=== PATIENT | female | born 1955 | race Caucasian/White ===

== ENCOUNTER 2023-04-29 13:14 | Outpatient (RCR) | payer OTHER, SELFPAY | END 2023-04-29 23:59 | disposition home or self-care (01) | LOC: RPT 13:14 | PROVIDERS: ATTENDING PHYSICIAN Obstetrics & Gynecology; FAMILY PHYSICIAN Internal Medicine | DX: R10.2 Pelvic and perineal pain (principal); M62.89 Other specified disorders of muscle; Z73.6 Limitation of activities due to disability; G89.29 Other chronic pain | CPT/HCPCS: 97162; 97535 ==

== ENCOUNTER 2023-05-20 09:58 | Outpatient (RCR) | payer OTHER, SELFPAY | END 2023-05-20 23:59 | disposition home or self-care (01) | LOC: RPT 09:58 | PROVIDERS: ATTENDING PHYSICIAN Obstetrics & Gynecology; FAMILY PHYSICIAN Internal Medicine | DX: R10.2 Pelvic and perineal pain (principal); M62.89 Other specified disorders of muscle; Z73.6 Limitation of activities due to disability; G89.29 Other chronic pain | CPT/HCPCS: 97110; 97140 ==

== ENCOUNTER → 2023-06-17 07:23 | Outpatient (REF) | payer OTHER, SELFPAY | LOC: RAD 07:23 | PROVIDERS: ATTENDING PHYSICIAN Physician Assistant Medical; FAMILY PHYSICIAN Internal Medicine | DX: R11.0 Nausea (principal) | CPT/HCPCS: 76700; 78226; A9537 ==

== ENCOUNTER 2023-06-25 12:45 | Outpatient (RCR) | payer OTHER, SELFPAY | END 2023-06-25 23:59 | disposition home or self-care (01) | LOC: RPT 12:45 | PROVIDERS: ATTENDING PHYSICIAN Obstetrics & Gynecology; FAMILY PHYSICIAN Internal Medicine | DX: R10.2 Pelvic and perineal pain (principal); M62.89 Other specified disorders of muscle; Z73.6 Limitation of activities due to disability | CPT/HCPCS: 97110; 97140; 97535 ==

== ENCOUNTER 2023-07-23 12:40 | Outpatient (RCR) | payer OTHER, SELFPAY | END 2023-07-23 23:59 | disposition home or self-care (01) | LOC: RPT 12:40 | PROVIDERS: ATTENDING PHYSICIAN Obstetrics & Gynecology; FAMILY PHYSICIAN Internal Medicine | DX: R10.2 Pelvic and perineal pain (principal); M62.89 Other specified disorders of muscle; Z73.6 Limitation of activities due to disability | CPT/HCPCS: 97110; 97140 ==

== ENCOUNTER 2023-08-13 09:46 | Outpatient (RCR) | payer OTHER, SELFPAY | END 2023-08-13 23:59 | disposition home or self-care (01) | LOC: RPT 09:46 | PROVIDERS: ATTENDING PHYSICIAN Obstetrics & Gynecology; FAMILY PHYSICIAN Internal Medicine | DX: R10.2 Pelvic and perineal pain (principal); M62.89 Other specified disorders of muscle | CPT/HCPCS: 97110; 97140 ==

== ENCOUNTER 2023-08-21 06:14 | Day surgery (SDC) | payer OTHER, SELFPAY ==
[2023-08-13 09:40] VITALS: BMI 27.0
[2023-08-13 10:29] LABS: Hematocrit 36.8 % (37.0-47.0); Hemoglobin 12.2 g/dL (12.0-16.0); Mean Corp Hgb Conc. 33.2 g/dL (33.0-37.0); Mean Corpuscular Hgb 29.2 pg (27.0-31.0); Mean Platelet Volume 10.8 fL (7.4-10.4); Platelet Count 254 10^3/uL (130-400); Red Blood Cell Count 4.18 10^6/uL (4.20-5.40); Red Cell Dist. Width 12.9 % (11.5-14.5); White Blood Cell Count 5.8 10^3/uL (4.8-10.8)
[2023-08-13 10:55] LABS: ALT (SGPT) 11 U/L (0-35); AST (SGOT) 23 U/L (14-36); Albumin 4.3 g/dl (3.5-5.0); Alkaline Phosphatase 58 U/L (38-126); Blood Urea Nitrogen 18 mg/dl (7-17); Calcium 9.6 mg/dl (8.4-10.2); Carbon Dioxide 28 mmol/L (22-30); Chloride 105 mmol/L (98-107); Estimated Creatinine Clearance 49 ml/min; Glucose 89 mg/dl (70-99); Potassium 4.3 mmol/L (3.5-5.1); Sodium 140 mmol/L (135-145); Total Bilirubin 0.3 mg/dl (0.2-1.3); Total Protein 7.2 g/dl (6.3-8.2); eGFR > 60.00
[2023-08-21] VITALS (8 sets, daily range): BP systolic 105–129; BP diastolic 56–76; BMI 27.0
[2023-08-21] MEDS: TYLENOL 1000 MG PO (07:57)
[2023-08-21] MEDS: NORMOSOL-R 1000 IV (08:22)
[2023-08-21] MEDS: DILAUDID 0.25 MG IV ×2 (11:03→11:21)
== END 2023-08-21 13:15 | disposition home or self-care (01) ==
LOC: SDS 06:14
PROVIDERS: ATTENDING PHYSICIAN Surgery; FAMILY PHYSICIAN Internal Medicine; OTHER PHYSICIAN Physician Assistant Medical
DX: K80.10 Calculus of gallbladder with chronic cholecystitis without obstruction (principal); K66.0 Peritoneal adhesions (postprocedural) (postinfection)
CPT/HCPCS: 47563; 88304; 36415; 74300; 76000; 80053; 85027; 93005

== ENCOUNTER 2023-10-21 13:09 | Outpatient (RCR) | payer OTHER, SELFPAY | END 2023-10-21 23:59 | disposition home or self-care (01) | LOC: RPT 13:09 | PROVIDERS: ATTENDING PHYSICIAN Obstetrics & Gynecology; FAMILY PHYSICIAN Internal Medicine | DX: R10.2 Pelvic and perineal pain (principal); M62.89 Other specified disorders of muscle; Z73.6 Limitation of activities due to disability | CPT/HCPCS: 97110; 97140 ==

== ENCOUNTER → 2023-11-05 17:35 | Outpatient (REF) | payer OTHER, SELFPAY | LOC: PAVMRI 17:35 | PROVIDERS: ATTENDING PHYSICIAN Student in an Organized Health Care Education/Training Program; FAMILY PHYSICIAN Internal Medicine | DX: M54.50 Low back pain, unspecified (principal) | CPT/HCPCS: 72148 ==

== ENCOUNTER 2023-11-24 11:08 | Outpatient (RCR) | payer OTHER, SELFPAY | END 2023-11-24 23:59 | disposition home or self-care (01) | LOC: RPT 11:08 | PROVIDERS: ATTENDING PHYSICIAN Obstetrics & Gynecology; FAMILY PHYSICIAN Internal Medicine | DX: R10.2 Pelvic and perineal pain (principal); M62.89 Other specified disorders of muscle; Z73.6 Limitation of activities due to disability | CPT/HCPCS: 97140 ==

== ENCOUNTER → 2023-12-01 11:39 | Outpatient (REF) | payer OTHER, SELFPAY | LOC: HWRAD 11:39 | PROVIDERS: ATTENDING PHYSICIAN Student in an Organized Health Care Education/Training Program; FAMILY PHYSICIAN Internal Medicine | DX: M54.50 Low back pain, unspecified (principal) | CPT/HCPCS: 72131 ==

== ENCOUNTER 2023-12-21 11:00 | Outpatient (RCR) | payer OTHER, SELFPAY | END 2023-12-21 23:59 | disposition home or self-care (01) | LOC: RPT 11:00 | PROVIDERS: ATTENDING PHYSICIAN Obstetrics & Gynecology; FAMILY PHYSICIAN Internal Medicine | DX: R10.2 Pelvic and perineal pain (principal); M62.89 Other specified disorders of muscle; Z73.6 Limitation of activities due to disability; M54.50 Low back pain, unspecified | CPT/HCPCS: 97110; 97140; 97535 ==

== ENCOUNTER 2024-01-26 12:09 | Outpatient (RCR) | payer OTHER, SELFPAY | END 2024-01-26 23:59 | disposition home or self-care (01) | LOC: RPT 12:09 | PROVIDERS: ATTENDING PHYSICIAN Obstetrics & Gynecology; FAMILY PHYSICIAN Internal Medicine | DX: R10.2 Pelvic and perineal pain (principal); M62.89 Other specified disorders of muscle; Z73.6 Limitation of activities due to disability; M54.50 Low back pain, unspecified | CPT/HCPCS: 97110; 97140 ==

== ENCOUNTER 2024-02-10 12:22 | Outpatient (RCR) | payer OTHER, SELFPAY | END 2024-02-10 23:59 | disposition home or self-care (01) | LOC: RPT 12:22 | PROVIDERS: ATTENDING PHYSICIAN Obstetrics & Gynecology; FAMILY PHYSICIAN Internal Medicine | DX: R10.2 Pelvic and perineal pain (principal); M62.89 Other specified disorders of muscle; Z73.6 Limitation of activities due to disability; M54.50 Low back pain, unspecified | CPT/HCPCS: 97110; 97140 ==

== ENCOUNTER 2024-03-16 12:07 | Outpatient (RCR) | payer OTHER, SELFPAY | END 2024-03-16 23:59 | disposition home or self-care (01) | LOC: RPT 12:07 | PROVIDERS: ATTENDING PHYSICIAN Obstetrics & Gynecology; FAMILY PHYSICIAN Internal Medicine | DX: R10.2 Pelvic and perineal pain (principal); M62.89 Other specified disorders of muscle; Z73.6 Limitation of activities due to disability; M54.50 Low back pain, unspecified | CPT/HCPCS: 97140; 97535 ==

== ENCOUNTER 2024-04-21 11:50 | Outpatient (RCR) | payer OTHER, SELFPAY | END 2024-04-21 23:59 | disposition home or self-care (01) | LOC: RPT 11:50 | PROVIDERS: ATTENDING PHYSICIAN Obstetrics & Gynecology; FAMILY PHYSICIAN Internal Medicine | DX: R10.2 Pelvic and perineal pain (principal); M62.89 Other specified disorders of muscle; Z73.6 Limitation of activities due to disability; M54.50 Low back pain, unspecified; M79.7 Fibromyalgia; M62.81 Muscle weakness (generalized); Z98.890 Other specified postprocedural states | CPT/HCPCS: 97110; 97140 ==

== ENCOUNTER 2024-05-10 13:15 | Outpatient (RCR) | payer OTHER, SELFPAY | END 2024-05-10 23:59 | disposition home or self-care (01) | LOC: RPT 13:15 | PROVIDERS: ATTENDING PHYSICIAN Obstetrics & Gynecology; FAMILY PHYSICIAN Internal Medicine | DX: R10.2 Pelvic and perineal pain (principal); M62.89 Other specified disorders of muscle; Z73.6 Limitation of activities due to disability; M79.7 Fibromyalgia; M62.81 Muscle weakness (generalized); Z98.890 Other specified postprocedural states; M54.50 Low back pain, unspecified | CPT/HCPCS: 97110; 97140 ==

== ENCOUNTER 2024-06-16 13:44 | Outpatient (RCR) | payer OTHER, SELFPAY | END 2024-06-16 23:59 | disposition home or self-care (01) | LOC: RPT 13:44 | PROVIDERS: ATTENDING PHYSICIAN Obstetrics & Gynecology; FAMILY PHYSICIAN Internal Medicine | DX: R10.2 Pelvic and perineal pain (principal); M62.89 Other specified disorders of muscle; Z73.6 Limitation of activities due to disability; M79.7 Fibromyalgia; M62.81 Muscle weakness (generalized); M54.50 Low back pain, unspecified; Z98.890 Other specified postprocedural states | CPT/HCPCS: 97140; 97530 ==

== ENCOUNTER 2024-07-21 14:05 | Outpatient (RCR) | payer OTHER, SELFPAY | END 2024-07-21 23:59 | disposition home or self-care (01) | LOC: RPT 14:05 | PROVIDERS: ATTENDING PHYSICIAN Obstetrics & Gynecology; FAMILY PHYSICIAN Internal Medicine | DX: R10.2 Pelvic and perineal pain (principal); M62.89 Other specified disorders of muscle; Z73.6 Limitation of activities due to disability; M79.7 Fibromyalgia; M62.81 Muscle weakness (generalized); M54.50 Low back pain, unspecified; Z98.890 Other specified postprocedural states | CPT/HCPCS: 97110; 97140 ==

== ENCOUNTER 2024-08-25 12:45 | Outpatient (RCR) | payer OTHER, SELFPAY | END 2024-08-25 23:59 | disposition home or self-care (01) | LOC: RPT 12:45 | PROVIDERS: ATTENDING PHYSICIAN Obstetrics & Gynecology; FAMILY PHYSICIAN Internal Medicine | DX: R10.2 Pelvic and perineal pain (principal); M62.89 Other specified disorders of muscle; Z73.6 Limitation of activities due to disability; M79.7 Fibromyalgia; M62.81 Muscle weakness (generalized); M54.50 Low back pain, unspecified; Z98.890 Other specified postprocedural states | CPT/HCPCS: 97110; 97140 ==

== ENCOUNTER 2024-08-29 23:59 | Inpatient (IN) | payer OTHER, SELFPAY ==
[2024-08-29] VITALS (10 sets, daily range): BP systolic 81–175; BP diastolic 63–92; BMI 29.5
[2024-08-29 18:16] LABS: Hematocrit 40.4 % (37.0-47.0); Hemoglobin 13.7 g/dL (12.0-16.0); Mean Corp Hgb Conc. 33.9 g/dL (33.0-37.0); Mean Corpuscular Volume 86.3 fL (81.0-99.0); Nucleated Red Blood Cells % 0 %; Platelet Count 221 10^3/uL (130-400); Red Cell Dist. Width 12.8 % (11.5-14.5)
[2024-08-29 18:37] LABS: ALT (SGPT) 14 U/L (0-35); AST (SGOT) 23 U/L (14-36); Albumin 4.6 g/dl (3.5-5.0); Alkaline Phosphatase 63 U/L (38-126); Blood Urea Nitrogen 19 mg/dl (7-17); Calcium 10.2 mg/dl (8.4-10.2); Carbon Dioxide 29 mmol/L (22-30); Chloride 105 mmol/L (98-107); Glucose 98 mg/dl (70-99); Lipase 69 U/L (23-300); Potassium 4.5 mmol/L (3.5-5.1); Sodium 142 mmol/L (135-145); Total Protein 7.9 g/dl (6.3-8.2); eGFR > 60.00
--- NOTE | 2024-08-29 21:12 | ED.GENMED ---
History of Present Illness
General
Chief Complaint: Abdominal Pain
Time Seen by Provider: 08/29/24 20:16
History of Present Illness
History of Present Illness:
69-year-old female with history of multiple bowel obstructions status post partial resection of the bowel (hx temporary colostomy) presenting to the emergency department for abdominal pain and nausea. Patient reports symptoms for the past 2 days.
Last bowel movement was today, however feels that her symptoms are similar to prior bowel obstructions given her level of discomfort. She has not any medications for pain. Denies fever. Denies chest pain or difficulty breathing. Notes nausea
without vomiting. Denies additional acute medical complaints
Phy Exam
Physical Exam
Physical Exam:
General: Well-appearing, no clinical signs of dehydration, nontoxic and in no acute distress
HEENT: protecting airway
Neck: appears supple
CV: Normal heart rate, regular rhythm
Resp: No accessory muscle use, no increased work of breathing, lungs clear to auscultation bilaterally
Abd: Mild to moderate distention with generalized abdominal discomfort on palpation. No rebound or guarding
Extremities: No deformities, no swelling
Neuro: alert, no focal neurologic deficit
: deferred
Rectal: deferred
Psych: Normal affect
Skin: Intact
Course
Orders/Labs/Results
Orders:
Orders
08/29/24 18:09
Complete Blood Count/With Diff Urgent
Comprehensive Metabolic Panel Urgent
Lipase Urgent
08/29/24 20:51
CT Abd/pel Without Iv Or Oral Urgent
Comment:
Reason For Exam: hx bowel obstructions, pain
08/29/24 20:52
Morphine Sulfate 4 mg IV NOW STA
08/29/24 21:14
Ondansetron Injectable [Zofran] 4 mg IV NOW STA
08/29/24 21:41
0.9% Sodium Chloride 1000 ml [Nss] 1,000 ml IV BOLUS
08/29/24 23:00
Flush (0.9% Sodium Chloride) [Flush (Nss)] See Dose Instructions IV PER PROTOCOL
08/29/24 23:23
NG Tube [GI tube insertion- Treatment] ONCE
08/29/24 23:55
Admit/Transfer Patient As Directed
Co-Sign Provider:
Level of Care: Inpatient admission
Assign to:: Medical/Surgical
Physician / Group: Norman
Diagnosis: SBO
Reason for Hospitalization: SBO
Expected length of stay greater than two midnights?: Yes
ELOS- Estimated Length of Stay in days: 2
I certify the patient meets the requirements for IP care: Yes
Code Status As Directed
Resuscitation Status: Full Code
PRN Pain Medication Management As Directed
May give lesser potent ordered pain med per pt: Yes
preference::
Protocol:: Medication orders for pain may be administered in a
manner that supports deferring to patient preference
when the pt is:
- Requesting an ordered lesser potent pain medication.
Least to most potent pain medications are defined
as: acetaminophen < NSAID < tramadol < opioids
(morphine, oxycodone, hydromorphone).
- Requesting a lesser dose of the same medication IF
ORDERED.
- Requesting a less intrusive route of administration
if both routes are prescribed by the provider (PO <
IV).
08/30/24 01:11
HYDROmorphone [Dilaudid] 0.5 mg IV Q4HPRN PRN
Lactated Ringers [Lr] 1,000 ml IV 100 mls/hr
Ondansetron Injectable [Zofran] 4 mg IV Q6HPRN PRN
08/30/24 01:11
SURGICAL CONSULT Routine
Consulting Provider: Curtis Ellis
Was physician already notified: Yes
Reason for consult: SBO
Activity As Directed
Activity Level: Ambulate
I/O [Intake/ Output] As Directed
Frequency: Per unit guidelines
Vital Signs As Directed
Frequency: Per unit guidelines
Weight As Directed
Frequency: Daily
DX Deep Vein Thrombosis Video Routine
08/30/24 Breakfast
NPO
Allow oral meds: Yes
Allow clear liquids: Sips of Clears
Basic Metabolic Panel IN AM
Complete Blood Count/No Diff IN AM
08/30/24 18:00
Enoxaparin Sodium [Lovenox] 40 mg SC QPM
Abnormal Lab Results
08/29/24
18:09
Lymphocytes % 18.9 L %
(20.5-51.1)
BUN 19 H mg/dl
(7-17)
08/29/24 18:09
08/29/24 18:09
Vital Signs
Initial and Last Documented VS:
Initial Vital Signs
Temp Pulse Resp BP Pulse Ox
98.1 F 66 18 142/89 96
08/29/24 17:36 08/29/24 17:36 08/29/24 17:36 08/29/24 17:36 08/29/24 17:36
Last Documented Vital Signs
Temp Pulse Resp BP Pulse Ox
98.2 F 64 16 156/80 98
08/30/24 01:27 08/30/24 01:27 08/30/24 01:27 08/30/24 01:27 08/30/24 01:27
MDM/Problems Addressed
MDM/Problems Addressed:
69-year-old female with history of prior bowel obstructions and bowel surgeries presenting for abdominal discomfort with nausea and abdominal pain for 2 days. Vital signs on arrival are normal.
On exam, patient is in no acute distress, slightly comfortable secondary to pain. Abdominal exam, distention with generalized tenderness. Multiple prior abdominal scars. Given history, bowel obstruction is certainly consideration. For this
reason we will obtain CT imaging. Patient has contrast allergy. Will obtain CT without contrast. Morphine and Zofran administered for pain. Will reassess for improvement
23:00 -patient CT does show concern for a small bowel obstruction, limited given absence of contrast. Plan for admission with surgical consultation.
*Pulse Oximetry
SaO2: 99
Oxygen Mode of Delivery: Room air
Patient hypoxic: no
*Critical Care Note
Total Time (30-74mins, 75-104mins- exclusive of procedures): Not Applicable
ED Attending Note
-
Portions of this chart may have been created with voice recognition software.� Occasional wrong word or��sound alike� substitutions may have occurred due to the inherent limitations of voice recognition software.
Discharge Plan
Departure
Patient Disposition: Admit
Date of Disposition: 08/29/24
Time of Disposition: 23:24
Presentation/result/management discussed w/ accepting MD/DO: Hospitalist
Patient with high blood pressure during this ER visit?: No
Condition: Fair
Discharge Problem:
Partial small bowel obstruction
Interventions
Interventions:
*Risk Screen - Suicide Last Done: 08/30/24 01:39
*General Assessment Last Done: 08/29/24 17:36
*Neglect/Abuse Screening Last Done: 08/29/24 17:36
*ED- Fall Risk Assessment Last Done: 08/29/24 19:52
*ED COVID-19 Vaccine History Last Done: 08/30/24 01:39
*Nursing Disposition Last Done: 08/30/24 01:10
AD-Dgfwyz-Bvrsmorxwy Assessment Last Done: 08/29/24 19:55
Discharge Date and Time
Discharge Date/Time: 08/30/24 01:10
[2024-08-29] MEDS: NSS 1000 IV (21:42)
[2024-08-29] MEDS: ZOFRAN 4 MG IV (21:50)
[2024-08-29] MEDS: MORPHINE SULFATE 4 MG IV (21:55)
--- NOTE | 2024-08-29 23:42 | HPS.HSE ---
Family Physician
-
Family Physician: Shavonne Kramer
Chief Complaint
-
Abd Pain
History of Present Illness
Patient is a 69y F with PMH significant for fibromyalgia and prior SBO who presents to ED complaining of abdominal pain. Patient states that she has been having mild, diffuse abdominal pain for about 2 days now. Today the pain became much more
severe. Pain is mostly in the R abdomen. Pos nausea with one episode of emesis here in the ED. No change in bowel habits with last normal-appearing BM this morning.
Patient denies any bloody stools, fevers / chills.
Patient reports abdominal abscess and bowel obstruction in 2016 requiring surgical repair. Since that time she has had 4 other SBO episodes - all improving with NG decompression.
At the time of my examination patient feels improved from initial arrival.
Medical History
Past Medical History
Past Medical History: Reports Other
Additional Past Medical History:
Fibromyalgia
IBS
Interstitial Cystitis
Pelvic Floor Dysfunction
Chronic Pain Syndrome
Past Surgical History: Reports Other
Additional Past Surgical History:
Ex lap / Right Hemicolectomy / Abscess Drainage (2016)
Cholecystectomy
Wrist ORIF
Social History
Tobacco: Non-smoker
Alcohol: None
Drug: None
Family History
Family History: Not pertinent
Allergies / Home Medications
Allergies reflects when Allergies were last updated in [facility].
Home Medications with original date entered in [facility]
Allergy/Medication List:
Allergies
Allergy/AdvReac Type Severity Reaction Status Date / Time
Iodinated Contrast Media Allergy Anaphylaxis Verified 08/29/24 19:52
linaclotide (From Linzess) Allergy DIARRHEA Verified 08/29/24 19:52
naproxen (From Aleve) Allergy Hives Verified 08/29/24 19:52
oxycodone Allergy HYPER, Verified 08/29/24 19:52
CONFUSED
shellfish derived Allergy Anaphylaxis Verified 08/29/24 19:52
Home Medications
Botox 0 unit IM [id number] 08/29/24
Gabapentin Ointment 1 applic vaginal BID 08/29/24
acetaminophen 325 mg tablet (Tylenol) 650 - 975 mg PO BIDPRN PRN mild pain 08/29/24
estradiol 1 dose vaginal BID 08/29/24
fluconazole 200 mg tablet 200 mg PO Q72H 08/29/24
hydrocodone 5 mg-acetaminophen 325 mg tablet 1 tab PO DAILY 08/29/24
ibuprofen 200 mg tablet 400 mg PO BIDPRN PRN mild pain 08/29/24
lorazepam 1 mg tablet 1 mg PO HS PRN anxiety 08/29/24
omeprazole 40 mg capsule,delayed release 40 mg PO DAILY 08/29/24
paroxetine HCl 20 mg tablet 20 mg PO DAILY 08/29/24
polyethylene glycol 3350 17 gram oral powder packet (Miralax) 17 g PO DAILY 08/29/24
trazodone 100 mg tablet 100 mg PO HS 08/29/24
Bonafide Revaree Plus 1 supp vaginal HS 08/30/24
Review of Systems
-
History Source: Patient
A 12 point ROS was completed and negative except as noted: Yes
Constitutional: Denies Fever or Chills
Respiratory: Denies Cough or Trouble Breathing
Cardiac: Denies Chest Pain or Palpitations
Abdomen/GI: Reports Abdominal Pain, Nausea and Vomiting; Denies Diarrhea, Constipated, Bloody Stools or Black Stools
: Denies Dysuria or Frequency
Musculoskeletal: Denies Joint Pain or Edema
Neurological: Denies Dizzy or Headache
Physical Exam
Vital Signs
Vital Signs
Temp Pulse Resp BP Pulse Ox
98.5 F 60 18 130/70 97
08/29/24 19:53 08/29/24 23:30 08/29/24 23:30 08/29/24 23:30 08/29/24 23:30
Physical Exam
General: Other (69y F in no distress.)
HEENT: Moist mucous membranes
Respiratory: Clear; No Wheezes, Rales or Rhonchi
Cardiac: S1/S2 and Regular Rhythm; No Murmur
GI: Soft, Non Distended, Normal Bowel Sounds and Other (Mildly tender - mostly in mid abdomen. No rebound / guarding. Pos BS.)
Musculoskeletal: No Clubbing, No Cyanosis and No Edema
Neuro: AO x 3
Laboratory Results
-
08/29/24 18:09
08/29/24 18:09
Laboratory Results
Total Bilirubin 0.5 mg/dl (0.2-1.3) 08/29/24 18:09
AST 23 U/L (14-36) 08/29/24 18:09
ALT 14 U/L (0-35) 08/29/24 18:09
Alkaline Phosphatase 63 U/L (38-126) 08/29/24 18:09
Lipase 69 U/L (23-300) 08/29/24 18:09
Impression/Plan
-
A/P: Patient is a 69y F with PMH significant for fibromyalgia and prior SBO who presents to ED complaining of abdominal pain.
Partial SBO
- Admit for further evaluation and treatment.
- NPO, IVFs, pain control, antiemetics, etc.
- NG to be placed in the ED.
- Follow for clinical improvement.
- Surgery consulted for additional recommendations.
Fibromyalgia
Chronic Pain Syndrome
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
- Holding PO meds acutely.
- Resume usual regimen once able to take PO.
DVT Prophylaxis: Lovenox
Code Status: Full
[2024-08-30] VITALS: BP 132/74
[2024-08-30] MEDS: CHLORASEPTIC/SORE THROAT SPRAY 2 SPRAY PO (00:45)
[2024-08-30 01:06] VITALS: BP 138/76
--- NOTE | 2024-08-30 01:20 | PTCARENOTE ---
Pt arrived to 2S from ED via stretcher. NGT in place at 58cm hookd up to low intermittent suction per order. IVF infusing per order. AAOx3. VSS. c/o pain and nausea, PRN dilaudid and zofran administered. NPO. Abdomen is tender. Scattered bruising
throughout body d/t multiple IV attempts in ED, but otherwise intact. Oriented to room, call chavez within reach, bed in lowest position. Care remains ongoing.
[2024-08-30 01:27] VITALS: BP 156/80; BMI 29.1
[2024-08-30] MEDS: LR 1000 IV ×3 (01:32→20:15)
[2024-08-30] MEDS: DILAUDID 0.5 MG IV ×3 (01:48→07:17)
[2024-08-30] MEDS: ZOFRAN 4 MG IV ×2 (01:49→11:13)
[2024-08-30] MEDS: ATIVAN 0.5 MG PO (03:01)
[2024-08-30 06:00] VITALS: BMI 29.1
[2024-08-30] MEDS: PROTONIX IV 40 MG IV (07:22)
[2024-08-30] MEDS: NSS (PRESERVATIVE FREE) 10 ML IV (07:22)
[2024-08-30 07:35] VITALS: BP 123/70
--- NOTE | 2024-08-30 09:25 | CON.GS ---
Addendum entered and electronically signed by Curtis Ellis MD 08/30/24 12:30:
Patient is a 69 yo F with a PMH of fibromyalgia and chronic pain, pelvic floor dysfunction, GERD, gastroparesis, IBS, and s/p multiple surgeries including exploratory laparotomy RIGHT hemicolectomy, appendectomy, and sigmoidectomy with DLI for
colonic perforation with abscess formation in 2015, and s/p laparoscopic cholecystectomy by myself in 08/2023. Ms. Yang presents with 48 to 72 hours of crampy abdominal pain. She states that her symptoms began on Thursday this past
weekend. She reports crampy abdominal pain primarily located in the RLQ. Associated nausea and vomiting. Last bowel movement and flatus was yesterday. She typically takes MiraLAX daily. She has had recurrent episodes of SBO's every few years.
She denies any dietary indiscretion or high fiber foods. She does report being out in the sun over the weekend with some mild nausea associated with dehydration. Currently she states that her pain is mildly improved though still present. She
continues to have nausea, episodes of vomiting. No flatus or BM since admission.
Gen: NAD
HEENT: NGT with minimal light bilious output
Abd: soft, mild tenderness, ND, non-peritoneal, prior incisions well healed
Labs and imaging reviewed.
Patient is a 69 yo F p/w SBO likely secondary to adhesions, possibly compounded by narcotic use and dehydration
The natural history and pathophysiology of bowel obstructions was discussed. Radiographic imaging was reviewed. No worrisome signs or symptoms concerning for bowel ischemia or perforation; no indication or need for more urgent surgical
intervention. Recommend medical management with bowel rest. Given her current clinical stability will plan for a contrasted study for both diagnostic and therapeutic purposes. Okay for sips and chips for comfort. Pain control adjusted. All
questions answered.
-- SBFT
-- NPO with sips for comfort, NGT decompression (clamp post study)
-- Pain control: Tylenol, Toradol, IV Dilaudid
-- Zofran PRN
-- DVT: Lovenox
-- GI: PPI
Original Note:
Consultation
-
Date/Time Consultation Requested: 08/30, 1am
Date/Time Consultation Performed: 08/30, 9am
Requesting Provider: Marcus Austin
Performing Provider: Curtis Ellis
Reason for Consultation: SBO
Medical History
-
Chief Complaint: abdominal pain, n/v
History of Present Illness:
Gabriella Yang is a 69yo F with a PMH notable for fibromyalgia, extensive abdominal surgeries (R hemicolectomy, sigmoidectomy, cholecystecomy, appendectomy), and recurrent SBOs, who presented to ED on 08/29 with nausea, vomiting, and abdominal pain
and was admitted to the floor with c/f SBO, supported by abd CT. Surgery consulted to evaluate SBO and advise management.
Patient had a R hemicolectomy in 2015 (2/2 abdominal abscess & SBO, with hysterectomy & appendectomy also performed at that time). Since 2015, she has had recurrent SBOs every few years, with this current recurrence being her 5th. Variable time to
resolution with each episode. Patient typically takes miralax daily to help with bowel movements; took last on 08/28. Takes 5mg hydrocodone-325mg acetaminophen daily for fibromyalgia. On 08/29 patient experienced abdominal pain, nausea, and vomiting
c/w prior episodes of SBO and presented to ED. Denies any change in diet leading up to abd sx. Abdominal CT demonstrated 'Mildly dilated and fluid-filled small bowel loops in the right hemiabdomen, possibly secondary to an enteritis or low-grade
obstruction. Significantly limited evaluation for a bowel obstruction without oral contrast, but there is a transition from more dilated small bowel loops to smaller caliber small bowel loops at the level of an anastomosis in the right lower
quadrant. Moderate fluid and stool in the colon.' NG tube placed and pt started on IVF, pain control, and made NPO.
As of 08/30 morning, pt had no new vomiting but endorses ongoing nausea refractory to zofran. Also endorses 8-9/10 upper and R-sided abdominal pain that radiates to back, which recurs after 1 hr of 0.5 mg dilaudid (receiving q3hr). Has been urinating
but no BM and no gas. No new CP, SOB, fevers/chills.
Past Medical History
Past Medical History: Other (fibromyalgia, gastroparesis)
Past Surgical History: Appendectomy, Bowel Resection (R hemicolectomy; sigmoidectomy), Cholecystectomy and Gynecological (hysterectomy)
Allergies / Home Medications
Allergy/AdvReac Type Severity Reaction Status Date / Time
Iodinated Contrast Media Allergy Anaphylaxis Verified 08/29/24 19:52
linaclotide (From Linzess) Allergy DIARRHEA Verified 08/29/24 19:52
naproxen (From Aleve) Allergy Hives Verified 08/29/24 19:52
oxycodone Allergy HYPER, Verified 08/29/24 19:52
CONFUSED
shellfish derived Allergy Anaphylaxis Verified 08/29/24 19:52
�Medication �Instructions �Recorded �Confirmed �Type
Botox 0 unit IM [id number] 08/29/24 08/30/24 History
Gabapentin Ointment 1 applic vaginal BID 08/29/24 08/30/24 History
acetaminophen 325 mg tablet 650 - 975 mg PO BIDPRN PRN mild 08/29/24 08/30/24 History
(Tylenol) pain
estradiol 1 dose vaginal BID 08/29/24 08/30/24 History
fluconazole 200 mg tablet 200 mg PO Q72H Infection 08/29/24 08/30/24 History
hydrocodone 5 mg-acetaminophen 325 1 tab PO DAILY Pain 08/29/24 08/30/24 History
mg tablet
ibuprofen 200 mg tablet 400 mg PO BIDPRN PRN mild pain 08/29/24 08/30/24 History
lorazepam 1 mg tablet 1 mg PO HS PRN anxiety 08/29/24 08/30/24 History
omeprazole 40 mg capsule,delayed 40 mg PO DAILY Gastrointestinal 08/29/24 08/30/24 History
release Issue
paroxetine HCl 20 mg tablet 20 mg PO DAILY Mental 08/29/24 08/30/24 History
Health/Anxiety
polyethylene glycol 3350 17 gram 17 g PO DAILY Constipation 08/29/24 08/30/24 History
oral powder packet (Miralax)
trazodone 100 mg tablet 100 mg PO HS Sleep 08/29/24 08/30/24 History
Bonafide Revaree Plus 1 supp vaginal HS 08/30/24 08/30/24 History
Review of Systems
-
Unable to obtain full review of systems at this time due to: Other (patient somnolent)
History Source: Patient
Constitutional: Fatigue
Cardiac: No Symptoms
Abdomen/GI: Abdominal Pain (bilateral upper abdominal pain radiation to back) and Nausea
Musculoskeletal: Muscle Pain (fibromyalgia achey pain)
A 10 point review of systems was completed, and was negative except as per HPI.
Physical Exam
Vital Signs
Temp Pulse Resp BP Pulse Ox
98.4 F 63 16 123/70 94
08/30/24 07:35 08/30/24 07:35 08/30/24 07:35 08/30/24 07:35 08/30/24 07:35
08/29/24 08/30/24 08/31/24
06:59 06:59 06:59
Actual Weight 71.985 kg
Body Mass Index (BMI) 29.1
Lab Results
WBC 7.8 10^3/uL (4.8-10.8) 08/29/24 18:09
Hgb 13.7 g/dL (12.0-16.0) 08/29/24 18:09
Hct 40.4 % (37.0-47.0) 08/29/24 18:09
Plt Count 221 10^3/uL (130-400) 08/29/24 18:09
Abs Immat Gran (auto) 0.0 10^3/uL (0-0.05) 08/29/24 18:09
Neutrophils % 74.8 % (42.2-75.2) 08/29/24 18:09
Physical Exam
General: Well Developed, Pain and Other (NG tube in place)
HEENT: Normocephalic and Atraumatic
Respiratory: Non Labored Respirations
GI: Soft and Other (abd pain not elicited by palpation; no rebound tenderness; mild distention; +/- tympany on percussion)
Skin: Warm and Dry
Neuro: Awake
Psych: Other (somnolent but conversant)
Data Reviewed
-
Radiology: Image Personally Visualized and interpreted and Report Reviewed by me
CT Scan: Image Personally Visualized and interpreted, Report Reviewed by me, Discussed with Physician and Discussed with Patient
Labs: Labs Reviewed by me
Critical Care Time (in minutes): 50
Total Time Spent with Patient (in minutes): 20
Assessment / Plan
-
Gabriella Yang is a 69yo F with a PMH notable for fibromyalgia, R hemicolectomy (2016), and recurrent SBOs, who presented with n/v & abd pain, admitted with c/f SBO supported by 08/[address], now being followed by surgery to advise mgmt of recurrent
SBO.
Assessment:
Episode presentation similar to prior SBOs (n/v, abd pain), and pt with significant risk for intermittent recurrent SBO 2/2 adhesions from prior abdominal surgeries and hemicolectomy, as well as chronic narcotic use. Afebrile, normotensive, normal
RR.
94% O2sat, likely 2/2 mild scarring/atelectasis noted on CT and/or splinting from upper abd/back pain, likely to resolve with pain mgmt. Low c/f resp depression 2/2 opioids with RR 16. Lytes wnl, h/h wnl. Mild glucose elevation 121 likely 2/2 stress
hyperglycemia, likely resolve w pain mgmt & SBO resolution.
Plan:
- Small bowel follow-through imaging, oral contrast today
- Continue NPO with sips & chips allowed
- Continue IVF
- Maintain NG tube
- Maintain non-operative mgmt at this point, watchful waiting for improvement in sx, BM
- PRN pain mgmt: increase dilaudid to 0.75mg q3h (may escalate to 1mg if needed); add IV toradol 15mg q4h
- GI: continue PPI, PRN zofran (increase dose, max 24mg/day)
- VTE ppx: lovenox
- Dispo: to home, pending resolution of SBO with pt able to tolerate PO solids & with BM
[2024-08-30 09:57] LABS: Hematocrit 39.1 % (37.0-47.0); Hemoglobin 13.0 g/dL (12.0-16.0); Mean Corp Hgb Conc. 33.2 g/dL (33.0-37.0); Mean Corpuscular Volume 88.3 fL (81.0-99.0); Platelet Count 228 10^3/uL (130-400); Red Cell Dist. Width 12.8 % (11.5-14.5)
--- NOTE | 2024-08-30 10:24 | CM ---
Reviewed the chart notes and spoke with the patient at the bedside. Patient admitted for SBO. Patient with NGT to lws. The patient resides alone in a first floor apartment with four steps to enter. The patient reports no DME/VN/SNF in the past.
The patient confirmed her pharmacy of choice is [facility] . CM continues to be available to patient/family and is monitoring medical plan for needs at discharge.
Plan: Discharge plans will depend on the patient's progress.
[2024-08-30 10:32] LABS: Blood Urea Nitrogen 16 mg/dl (7-17); Calcium 8.7 mg/dl (8.4-10.2); Carbon Dioxide 28 mmol/L (22-30); Chloride 105 mmol/L (98-107); Estimated Creatinine Clearance 60 ml/min; Glucose 121 mg/dl (70-99); Potassium 4.1 mmol/L (3.5-5.1); Sodium 139 mmol/L (135-145); eGFR > 60.00
[2024-08-30] MEDS: OFIRMEV 100 IV ×3 (11:10→23:32)
[2024-08-30] MEDS: DILAUDID 1 MG IV ×2 (14:36→20:20)
--- NOTE | 2024-08-30 14:48 | W.PN.HOSP.TC ---
Today's Communication/Plan
-
See plan
Assessment / Plan
Assessment / Plan
Impression/plan
Patient is a 69y F with PMH significant for fibromyalgia and prior SBO who presents to ED complaining of abdominal pain.
Small bowel obstruction
Prior history of abdominal surgery including bowel resection for intra-abdominal abscess, ileostomy reversal. Removed with details unclear. Status post cholecystectomy
NG tube placed in ED with some relief, although remains with significant nausea, discomfort and abdominal pain
Fortunately no evidence of bowel ischemia clinically and chemically.
Continue NG tube
Contrasted study ordered/SBFT.
Adjust analgesic regimen with addition of IV Tylenol, continue IV hydromorphone. Patient was educated to minimize opiates in the settings of SBO
Continue IV fluids
Replete electrolytes
Surgery input appreciated
Fibromyalgia
Chronic Pain Syndrome
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
- Holding PO meds acutely.
- Resume usual regimen once able to take PO.
DVT Prophylaxis: Lovenox
Code Status: Full
Anticipated Discharge: > 48 hours
Subjective/Interval History
-
Date of Service: August 30, 2024
Objective Data
-
Labs:
Laboratory Results
08/30/24
09:34
WBC 8.7
Hgb 13.0
Hct 39.1
Plt Count 228
Sodium 139
Potassium 4.1
Chloride 105
Carbon Dioxide 28
BUN 16
Creatinine 0.8
Glucose 121 H
Calcium 8.7 D
Vital Signs:
Vital Signs
Temp Pulse Resp BP Pulse Ox
98.4 F 63 16 123/70 94
08/30/24 07:35 08/30/24 07:35 08/30/24 07:35 08/30/24 07:35 08/30/24 09:44
I&O
08/29/24 08/30/24 08/31/24
06:59 06:59 06:59
Output Total 125 / 125
Balance -125 / -125
Physical Exam
-
General: Well Developed and No Apparent Distress
HEENT: Normocephalic, Atraumatic and Moist Mucous Membranes
Respiratory: Decreased Breath Sounds
Cardiac: Regular Rhythm and S1/S2; Negative Murmur, Rub or Gallop
GI: Soft, Nontender, Normal Bowel Sounds, Distended and Other (Mild abdominal distention with hypoactive bowel sounds. NG tube in place with bilious liquid); Negative Organomegaly
Rectal: Deferred by Provider
Musculoskeletal: No Clubbing, No Cyanosis and No Edema
Skin: Negative Rash
Neuro: Nonfocal/Grossly Intact
[2024-08-30 15:35] VITALS: BP 117/64
[2024-08-30] MEDS: TORADOL 15 MG IV ×2 (16:41→22:41)
[2024-08-30] MEDS: LOVENOX 40 MG SC (17:01)
[2024-08-30] MEDS: CHLORASEPTIC/SORE THROAT SPRAY 1 SPRAY PO (20:28)
[2024-08-30] MEDS: ATIVAN 0.5 MG IV (21:35)
[2024-08-30] MEDS: NSS (PRESERVATIVE FREE) 0.25 ML IV (21:36)
[2024-08-30 23:20] VITALS: BP 111/66
[2024-08-31] MEDS: CHLORASEPTIC/SORE THROAT SPRAY 1 SPRAY PO (03:57)
[2024-08-31] MEDS: ZOFRAN 5 MG IV (04:01)
[2024-08-31] MEDS: OFIRMEV 100 IV (05:04)
[2024-08-31 06:00] VITALS: BMI 29.2
[2024-08-31] MEDS: LR 1000 IV ×2 (06:18→20:05)
[2024-08-31] MEDS: TORADOL 15 MG IV ×2 (06:30→16:58)
[2024-08-31 07:30] VITALS: BP 113/61
--- NOTE | 2024-08-31 08:09 | W.PN.GS2 ---
Addendum entered and electronically signed by Tushar Street MD 08/31/24 11:44:
I saw and examined the patient.
The resident's note was reviewed and I agree with the note.
Comment: Pt reports improved pain and nausea, pain not fully resolved, BM x2 this am with relief, belly soft, nd, mild ttp to epigastrium (she reports this is typical location where she gets pain on a regular basis she attributes to fibromyalgia),
400cc light mitchell nbgt output. Pt prefers to obtain the SBFT for reassurance, not unreasonable given pain has not fully resolved. Proceed with SBFT. If no obstruction, would DC NGT and start CLD
Original Note:
Today's Communication / Plan
-
Plan:
- SBFT today
- Continue PRN analgesics
- Continue PRN zofran
- Continue IVF
- Advance diet to clears as tolerated
Assessment / Plan
-
Patient is a 69 yo F with a hx of fibromyalgia, GERD, gastroparesis, multiple abdominal surgeries (inc exlap R hemicolectomy, appendectomy, and sigmoidectomy with DLI for colonic perforation with abscess formation in 2015; lap dany in 2023), and
recurrent SBOs, now being managed for presumed recurrent partial SBO.
Obstructive sx improving s/p 2 BMs this morning. NG tube remains in place and PO intake only ice chips. SBFT ordered yesterday but not yet performed. Expected non-surgical resolution of SBO. Given that R abd tenderness on exam & nausea not fully
resolved, plan to proceed with SBFT for diagnostic & therapeutic benefits.
Plan:
- SBFT today
- Continue PRN analgesics
- Continue PRN zofran
- Continue IVF
- Advance diet to clears as tolerated
Time Spent
Total Time Spent with Patient (in minutes): 15
Subjective Data
-
Date of Service: August 31, 2024
Patient reports improvement in pain this am, was able to sleep more through the night. New PRN pain regimen is effective. Stomach still feels 'weird' but less painful. Reports 2 BMs this morning with large quantities of soft stool. Has been
tolerating ice chips (not sips of water yet) and nausea is well-controlled with PRN zofran. Nausea is correlated with episodes of abd pain rather than following consumption of ice chips.
Objective Data
-
Intake and Output
08/30/24 08/31/24 09/01/24
06:59 06:59 06:59
Intake Total 1490 / 1490
Output Total 125 / 125 400 / 400
Balance -125 / -125 1090 / 1090
Intake:
IV fluids (Total) 1200 / 1200
IV piggybacks 200 / 200
Amount instilled into GI Tube ( 90 / 90
Total)
[place] Sump 90 / 90
Output:
Gastrointestinal tube output ( 125 / 125 400 / 400
Total)
[place] Sump 125 / 125 400 / 400
Other:
Number of approximated MODERATE 2
amounts of urine
Number of approximated LARGE 1
amounts of urine
Vital Signs
Temp Pulse Resp BP Pulse Ox
98.4 F 58 16 111/66 91
08/30/24 23:20 08/30/24 23:20 08/30/24 23:20 08/30/24 23:20 08/30/24 23:20
Lab Results
08/30/24 09:34
08/30/24 09:34
Calcium 8.7 mg/dl (8.4-10.2) D 08/30/24 09:34
Total Bilirubin 0.5 mg/dl (0.2-1.3) 08/29/24 18:09
AST 23 U/L (14-36) 08/29/24 18:09
ALT 14 U/L (0-35) 08/29/24 18:09
Alkaline Phosphatase 63 U/L (38-126) 08/29/24 18:09
Total Protein 7.9 g/dl (6.3-8.2) 08/29/24 18:09
Albumin 4.6 g/dl (3.5-5.0) 08/29/24 18:09
Physical Exam
-
General: awake, well-appearing, no apparent distress
Cardiopulm: non-labored breathing
Abdominal: soft to palpation, no rebound tenderness, mild R-sided tenderness to palpation, only mild distention
Patient has a brown catheter: No
Patient has a central line: No
[2024-08-31] MEDS: NSS (PRESERVATIVE FREE) 10 ML IV (08:13)
[2024-08-31] MEDS: PROTONIX IV 40 MG IV (08:13)
[2024-08-31] MEDS: DILAUDID 1 MG IV (09:20)
[2024-08-31 09:45] LABS: Hematocrit 37.4 % (37.0-47.0); Hemoglobin 12.2 g/dL (12.0-16.0); Mean Corp Hgb Conc. 32.6 g/dL (33.0-37.0); Mean Corpuscular Volume 88.4 fL (81.0-99.0); Nucleated Red Blood Cells % 0 %; Platelet Count 202 10^3/uL (130-400); Red Cell Dist. Width 12.7 % (11.5-14.5)
[2024-08-31 10:03] LABS: Blood Urea Nitrogen 17 mg/dl (7-17); Calcium 8.6 mg/dl (8.4-10.2); Carbon Dioxide 26 mmol/L (22-30); Chloride 107 mmol/L (98-107); Estimated Creatinine Clearance 48 ml/min; Glucose 89 mg/dl (70-99); Potassium 4.1 mmol/L (3.5-5.1); Sodium 136 mmol/L (135-145); eGFR > 60.00
--- NOTE | 2024-08-31 11:45 | PN.CDI ---
CDI
- -
CDI:
Physician Documentation Request
Admit Date: 08/29/24 23:59
Dear Doctor Paresh,
Please review the following and provide your response in the progress notes.
Clinical Indicators:
- Patient admit for partial small bowel obstruction
- 08/29 H&P 'Chronic Pain Syndrome'
- home medication hydrocodone daily
- 08/30 PN 'Patient was educated to minimize opiates in the settings of SBO'
- Hydromorphone, morphine sulphate given
If possible, please provide further specificity as outlined below:
Opioid use with dependence
Opioid dependence
Other (please specify)
Use of terms such as suspected, likely, concern for, or probable (associated with a specific diagnosis that is being evaluated, monitored, or treated as if it exists) are acceptable and can be coded in the inpatient setting, when documented at the
time of discharge.
Thank you,
Korin Mccarty RN
CDI Specialist
Please use your independent medical judgment in providing your response.
--- NOTE | 2024-08-31 15:15 | W.PN.HOSP.TC ---
Today's Communication/Plan
-
Small bowel follow-through
NG tube pending above
IV fluids
Assessment / Plan
Assessment / Plan
Impression/plan
Patient is a 69y F with PMH significant for fibromyalgia and prior SBO who presents to ED complaining of abdominal pain.
Small bowel obstruction
Prior history of abdominal surgery including bowel resection for intra-abdominal abscess, ileostomy reversal. Removed with details unclear. Status post cholecystectomy
NG tube placed in ED with some relief, although remains with significant nausea, discomfort and abdominal pain
Fortunately no evidence of bowel ischemia clinically and chemically.
Reports some improvements with resolved nausea, improved abdominal pain and 2 small BMs as of a.m. 08/31
Contrasted study ordered/SBFT.
Continue NG tube for now
Adjust analgesic regimen with addition of IV Tylenol, continue IV hydromorphone. Patient was educated to minimize opiates in the settings of SBO
Continue IV fluids
Replete electrolytes
Surgery input appreciated
Fibromyalgia
Chronic Pain Syndrome
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
- Holding PO meds acutely.
- Resume usual regimen once able to take PO.
DVT Prophylaxis: Lovenox
Code Status: Full
Anticipated Discharge: 24 - 48 hours
Subjective/Interval History
-
Date of Service: August 31, 2024
Objective Data
-
Labs:
Laboratory Results
08/31/24
09:32
WBC 4.7 L
Hgb 12.2
Hct 37.4
Plt Count 202
Sodium 136
Potassium 4.1
Chloride 107
Carbon Dioxide 26
BUN 17
Creatinine 1.0
Glucose 89
Calcium 8.6
Vital Signs:
Vital Signs
Temp Pulse Resp BP Pulse Ox
98.3 F 62 16 113/61 95
08/31/24 07:30 08/31/24 07:30 08/31/24 07:30 08/31/24 07:30 08/31/24 07:30
I&O
08/30/24 08/31/24 09/01/24
06:59 06:59 06:59
Intake Total 1490 / 1490
Output Total 125 / 125 400 / 400
Balance -125 / -125 1090 / 1090
Physical Exam
-
General: Well Developed and No Apparent Distress
HEENT: Normocephalic, Atraumatic and Moist Mucous Membranes
Respiratory: Decreased Breath Sounds
Cardiac: Regular Rhythm and S1/S2; Negative Murmur, Rub or Gallop
GI: Soft, Nontender, Normal Bowel Sounds, Distended and Other (Mild abdominal distention with hypoactive bowel sounds. NG tube in place with bilious liquid); Negative Organomegaly
Rectal: Deferred by Provider
Musculoskeletal: No Clubbing, No Cyanosis and No Edema
Skin: Negative Rash
Neuro: Nonfocal/Grossly Intact
[2024-08-31 16:40] VITALS: BP 139/75
[2024-08-31] MEDS: LOVENOX 40 MG SC (17:03)
[2024-08-31] MEDS: TYLENOL 650 MG PO (20:34)
[2024-08-31] MEDS: ATIVAN 0.5 MG PO (21:13)
[2024-08-31] MEDS: MYLICON 80 MG PO (21:35)
[2024-08-31 22:48] VITALS: BP 136/75
[2024-09-01] MEDS: LR 1000 IV (03:14)
[2024-09-01] MEDS: TORADOL 15 MG IV (03:23)
[2024-09-01 06:00] VITALS: BMI 29.4
[2024-09-01 07:05] VITALS: BP 150/85
[2024-09-01 07:57] LABS: Hematocrit 32.9 % (37.0-47.0); Hemoglobin 10.9 g/dL (12.0-16.0); Mean Corp Hgb Conc. 33.1 g/dL (33.0-37.0); Mean Corpuscular Volume 88.2 fL (81.0-99.0); Nucleated Red Blood Cells % 0 %; Platelet Count 208 10^3/uL (130-400); Red Cell Dist. Width 12.4 % (11.5-14.5)
[2024-09-01] MEDS: NSS (PRESERVATIVE FREE) IV ×2 (08:07→08:10)
[2024-09-01] MEDS: PROTONIX IV IV ×2 (08:07→08:11)
[2024-09-01 08:19] LABS: Blood Urea Nitrogen 12 mg/dl (7-17); Calcium 8.8 mg/dl (8.4-10.2); Carbon Dioxide 27 mmol/L (22-30); Chloride 107 mmol/L (98-107); Estimated Creatinine Clearance 54 ml/min; Glucose 85 mg/dl (70-99); Potassium 3.8 mmol/L (3.5-5.1); Sodium 140 mmol/L (135-145); eGFR > 60.00
--- NOTE | 2024-09-01 08:52 | W.PN.GS2 ---
Addendum entered and electronically signed by Rashel Alston MD 09/01/24 09:19:
Patient seen and examined in the follow-up with surgical residents. Agree with documented progress note.
Improving from presenting symptoms. Passing flatus and having bowel movements. Occasional abdominal discomfort/cramps but consistent with resolving PSBO.
AFVSS
NAD AAO x 3
ABD: Soft, nondistended, mild tenderness palpation but without rebound rigidity or guarding
A/P: 69-year-old female with low-grade pSBO likely secondary to adhesions given extensive prior abdominal surgical history
Radiographically resolved, clinically improving/resolved
Low residue diet
Okay for DC from surgical standpoint
Original Note:
Today's Communication / Plan
-
Plan:
- Start low res PO diet this am
- Continue PRN analgesics
- Continue PRN zofran
- Restart home ativan & paroxetine
- Dispo: to home today, after first small meal without n/v
Assessment / Plan
-
Patient is a 69 yo F with a hx of fibromyalgia, gastroparesis, multiple abdominal surgeries (inc exlap R hemicolectomy, appendectomy, and sigmoidectomy with DLI for colonic perforation with abscess formation in 2015; lap dany in 2023), and
recurrent SBOs, being managed for recurrent partial SBO s/p SBFT and with restored bowel fxn.
Assessment: Pt much improved with active BMs for last 2 days and able to tolerate PO diet. NG tube removed. SBFT confirms no presence of full obstruction. Likely small partial SBO 2/2 adhesions & narcotic use, now largely resolved. Pt ready for
discharge once tolerates PO solids in am.
Plan:
- Start low res PO diet this am
- Continue PRN analgesics
- Continue PRN zofran
- Restart home ativan & paroxetine
- Dispo: to home today, after first small meal without n/v
Time Spent
Total Time Spent with Patient (in minutes): 15
Subjective Data
-
Date of Service: September 01, 2024
Pt tearful this morning, endorsing anxiety & sadness due to lack of home ativan & paroxetine. Reports BM last night and this morning, as well as flatus & urination. Tolerating clear diet without n/v. Pain well-controlled, and upper epigastric pain
relieved with use of simethicone.
Objective Data
-
Intake and Output
08/31/24 09/01/24 09/02/24
06:59 06:59 06:59
Intake Total 1490 / 1490 3080 / 3080
Output Total 400 / 400 150 / 150
Balance 1090 / 1090 2930 / 2930
Intake:
Oral fluids 720 / 720
IV fluids (Total) 1200 / 1200 2300 / 2300
IV piggybacks 200 / 200
Amount instilled into GI Tube ( 90 / 90 60 / 60
Total)
[place] Sump 90 / 90 60 / 60
Output:
Gastrointestinal tube output ( 400 / 400 150 / 150
Total)
[place] Sump 400 / 400 150 / 150
Other:
Number of approximated MODERATE 2 3
amounts of urine
Number of approximated LARGE 1
amounts of urine
Vital Signs
Temp Pulse Resp BP Pulse Ox
98.5 F 63 18 150/85 95
09/01/24 07:05 09/01/24 07:05 09/01/24 07:05 09/01/24 07:05 09/01/24 07:05
Lab Results
09/01/24 07:19
09/01/24 07:19
Calcium 8.8 mg/dl (8.4-10.2) 09/01/24 07:19
Total Bilirubin 0.5 mg/dl (0.2-1.3) 08/29/24 18:09
AST 23 U/L (14-36) 08/29/24 18:09
ALT 14 U/L (0-35) 08/29/24 18:09
Alkaline Phosphatase 63 U/L (38-126) 08/29/24 18:09
Total Protein 7.9 g/dl (6.3-8.2) 08/29/24 18:09
Albumin 4.6 g/dl (3.5-5.0) 08/29/24 18:09
Physical Exam
-
General: tearful, sitting up in bed, otherwise well-appearing
Cardiopulm: non-labored respirations
Abdominal: soft, non-distended, tender to palpation in the R upper/lower quadrants, non tender elsewhere, no rebound tenderness
Patient has a brown catheter: No
Patient has a central line: No
[2024-09-01] MEDS: ATIVAN 1 MG PO (09:38)
[2024-09-01] MEDS: PAXIL 20 MG PO (09:38)
--- NOTE | 2024-09-01 10:07 | CM ---
Pt anticipates discharge to home today; IMM reviewed and signed; placed on chart. One of her siblings will provide transport home.
Plan: Discharge to home with no identified needs.
--- NOTE | 2024-09-01 13:26 | W.DS.TRANS ---
DC Summary - Mail Caller
-
Discharge Instructions:
Discharge Diagnosis/Procedures SBO
Diet Low Residue
Instructions:
Stand-Alone Forms:
Changes to Home Medications: No
Discharge Medications:
DC Medications w/original date entered in [employer]
Botox 0 unit IM [id number] 08/29/24
Gabapentin Ointment 1 applic vaginal BID 08/29/24
acetaminophen 325 mg tablet (Tylenol) 650 - 975 mg PO BIDPRN PRN mild pain 08/29/24
estradiol 1 dose vaginal BID 08/29/24
fluconazole 200 mg tablet 200 mg PO Q72H Infection 08/29/24
hydrocodone 5 mg-acetaminophen 325 mg tablet 1 tab PO DAILY Pain 08/29/24
ibuprofen 200 mg tablet 400 mg PO BIDPRN PRN mild pain 08/29/24
lorazepam 1 mg tablet 1 mg PO HS PRN anxiety 08/29/24
omeprazole 40 mg capsule,delayed release 40 mg PO DAILY Gastrointestinal Issue 08/29/24
paroxetine HCl 20 mg tablet 20 mg PO DAILY Mental Health/Anxiety 08/29/24
polyethylene glycol 3350 17 gram oral powder packet (Miralax) 17 g PO DAILY Constipation 08/29/24
trazodone 100 mg tablet 100 mg PO HS Sleep 08/29/24
Bonafide Revaree Plus 1 supp vaginal HS 08/30/24
Home Medication Changes
Pending Results: No
[2024-09-01 13:55] VITALS: BP 144/79
--- NOTE | 2024-09-01 15:08 | W.DCSUMMARY ---
Discharge Summary
Discharge Data
Date of Admission: 08/29/24
Date of Discharge: 09/01/24
-
Pending Results: No
Hospital Course
Patient is a 69y F with PMH significant for fibromyalgia and prior SBO who presents to ED complaining of abdominal pain.
Small bowel obstruction
Prior history of abdominal surgery including bowel resection for intra-abdominal abscess, ileostomy reversal. Removed with details unclear. Status post cholecystectomy
NG tube placed in ED with some relief, although remains with significant nausea, discomfort and abdominal pain
Fortunately no evidence of bowel ischemia clinically and chemically.
Reports some improvements with resolved nausea, improved abdominal pain and 2 small BMs as of a.m. 08/31
Small bowel follow-through performed. Findings suggesting bowel wall thickening of the distal ileum involving 2 segments. This can be seen with inflammatory bowel disease such as Crohn's disease. Infection and less likely ischemia cannot be excluded.
Gradually symptoms improved with resolution of nausea, vomiting, abdominal pain. Patient had stable BMs
NG tube has been removed
Diet has been advanced
Patient will be discharged home to follow-up with gastroenterology as outpatient
Fibromyalgia
Chronic Pain Syndrome with opiate dependence
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
- Holding PO meds acutely.
- Resume usual regimen once able to take PO.
Discharge Plan
-
Patient Disposition: Home (Routine Discharge)
Discharge Diagnosis/Procedures: SBO
Condition: Good
Diet: Low Residue
Referrals:
Shavonne Kramer, DO [Non-Admitting Privileges, Internal Medicine]
Prescriptions:
Continued
acetaminophen [Tylenol] 325 mg Tablet
650 - 975 mg PO BIDPRN PRN (Reason: mild pain)
polyethylene glycol 3350 [Miralax] 17 gram Powder In Packet
17 g PO DAILY
hydrocodone-acetaminophen 5-325 mg Tablet
1 tab PO DAILY
fluconazole 200 mg Tablet
200 mg PO Q72H
omeprazole 40 mg Capsule,Delayed Release(Dr/Ec)
40 mg PO DAILY
trazodone 100 mg Tablet
100 mg PO HS
paroxetine HCl 20 mg Tablet
20 mg PO DAILY
ibuprofen 200 mg Tablet
400 mg PO BIDPRN PRN (Reason: mild pain)
lorazepam 1 mg Tablet
1 mg PO HS PRN (Reason: anxiety)
Botox
0 unit IM [id number]
Patient Comments:
08/29/2024, pt. is not sure if she recieves 200 or 300 units [id number].
Gabapentin Ointment
1 applic vaginal BID
Patient Comments:
08/29/2024, pt. gets compounded at [facility]; pharmacy closed at time of interview.
estradiol
1 dose vaginal BID
Patient Comments:
08/29/2024, pt. gets specially compounded at [facility]; pharmacy closed at time of interview.
Bonafide Revaree Plus
1 supp vaginal HS
Patient Comments:
08/29/2024, hyaluronic acid suppository.
Discharge Orders:
Discharge Patient (As Directed); Ordered 09/01/24
Ordered By: Zack Yoder
Discharge Date and Time
Print Language: WOLOF
== END 2024-09-01 15:24 | disposition home or self-care (01) | DRG 389 ==
LOC: 2 SOUTH 23:59
PROVIDERS: Student in an Organized Health Care Education/Training Program; ADMITTING PHYSICIAN Hospitalist; ATTENDING PHYSICIAN Internal Medicine; CONSULT PHYSICIAN Surgery; EMERGENCY PHYSICIAN Student in an Organized Health Care Education/Training Program; FAMILY PHYSICIAN Internal Medicine
DX: K56.600 Partial intestinal obstruction, unspecified as to cause (principal); F11.20 Opioid dependence, uncomplicated; G89.4 Chronic pain syndrome; M79.7 Fibromyalgia; Z90.49 Acquired absence of other specified parts of digestive tract; K58.9 Irritable bowel syndrome, unspecified; F41.9 Anxiety disorder, unspecified; Z79.899 Other long term (current) drug therapy; Z88.5 Allergy status to narcotic agent; Z90.710 Acquired absence of both cervix and uterus
CPT/HCPCS: 71045; 74176; 74250; 80048; 80053; 83690; 85025; 85027; 99285

== ENCOUNTER 2024-09-29 11:55 | Outpatient (RCR) | payer OTHER, SELFPAY | END 2024-09-29 23:59 | disposition home or self-care (01) | LOC: RPT 11:55 | PROVIDERS: ATTENDING PHYSICIAN Obstetrics & Gynecology; FAMILY PHYSICIAN Internal Medicine | DX: R10.2 Pelvic and perineal pain (principal); M62.89 Other specified disorders of muscle; Z73.6 Limitation of activities due to disability; M79.7 Fibromyalgia; M62.81 Muscle weakness (generalized); M54.50 Low back pain, unspecified; Z98.890 Other specified postprocedural states | CPT/HCPCS: 97110; 97140 ==

== ENCOUNTER 2024-10-27 12:09 | Outpatient (RCR) | payer OTHER, SELFPAY | END 2024-10-27 23:59 | disposition home or self-care (01) | LOC: RPT 12:09 | PROVIDERS: ATTENDING PHYSICIAN Obstetrics & Gynecology; FAMILY PHYSICIAN Internal Medicine | DX: R10.2 Pelvic and perineal pain (principal); M62.89 Other specified disorders of muscle; Z73.6 Limitation of activities due to disability; M79.7 Fibromyalgia; M62.81 Muscle weakness (generalized); M54.50 Low back pain, unspecified; Z98.890 Other specified postprocedural states | CPT/HCPCS: 97110; 97140; 97530 ==

== ENCOUNTER 2024-11-23 12:00 | Outpatient (RCR) | payer OTHER, SELFPAY | END 2024-11-23 23:59 | disposition home or self-care (01) | LOC: RPT 12:00 | PROVIDERS: ATTENDING PHYSICIAN Obstetrics & Gynecology; FAMILY PHYSICIAN Internal Medicine | DX: R10.2 Pelvic and perineal pain (principal); M62.89 Other specified disorders of muscle; Z73.6 Limitation of activities due to disability; M79.7 Fibromyalgia; M62.81 Muscle weakness (generalized); M54.50 Low back pain, unspecified; Z98.890 Other specified postprocedural states | CPT/HCPCS: 97014; 97112; 97140; 97530 ==

== ENCOUNTER 2024-12-30 09:25 | Outpatient (RCR) | payer OTHER, SELFPAY | END 2024-12-30 23:59 | disposition home or self-care (01) | LOC: RPT 09:25 | PROVIDERS: ATTENDING PHYSICIAN Obstetrics & Gynecology; FAMILY PHYSICIAN Internal Medicine | DX: R10.2 Pelvic and perineal pain (principal); M62.89 Other specified disorders of muscle; M62.81 Muscle weakness (generalized); Z73.6 Limitation of activities due to disability; M79.7 Fibromyalgia; R10.20 Pelvic and perineal pain unspecified side; M54.50 Low back pain, unspecified; Z98.890 Other specified postprocedural states | CPT/HCPCS: 97014; 97112; 97140 ==

== ENCOUNTER 2025-01-19 08:51 | Outpatient (RCR) | payer OTHER, SELFPAY | END 2025-01-19 23:59 | disposition home or self-care (01) | LOC: RPT 08:51 | PROVIDERS: ATTENDING PHYSICIAN Obstetrics & Gynecology; FAMILY PHYSICIAN Internal Medicine | DX: R10.20 Pelvic and perineal pain unspecified side (principal); R10.2 Pelvic and perineal pain (principal); M62.89 Other specified disorders of muscle; Z73.6 Limitation of activities due to disability; M79.7 Fibromyalgia; M62.81 Muscle weakness (generalized); M54.50 Low back pain, unspecified; Z98.890 Other specified postprocedural states | CPT/HCPCS: 97110; 97140 ==